=== PATIENT | female | born 1945 | race Caucasian/White ===

== ENCOUNTER → 2024-12-23 13:44 | Outpatient (REF) | payer OTHER, SELFPAY ==
--- NOTE | 2025-01-09 11:15 | OID.L.PAT ---
Pulmonary Nodule Pat Letter
- -
01/09/25
JOANNA MARTINS
[id number]
[place], [place] [address]
Tawanna MARSHALL,
A pulmonary nodule was seen on an imaging study done by [facility]. This was reviewed by the [facility] Pulmonary Nodule Advisory Board and the following recommendation was made:
Recommendation: Per Fleischner Society Guidelines for incidentally detected Pulmonary Nodules, if patient has increased risk factors for lung cancer, follow up CT Chest in one year recommended. If patient does not have increased risk factors, no
further follow up is required.
If you have any questions, please do not hesitate to contact your primary care physician. If you are in need of a Physician, you can go to [email or web address] and click on 'Find a Provider'. Type 'Family Medicine' in the search.
Oncology Nurse Navigator
[facility]
[phone]
--- NOTE | 2025-01-09 11:16 | OID.L.REC ---
Pulmonary Nodule Follow Up
- Recommendation
01/09/25
Pulmonary Nodule Review Recommendations
Your patient, JOANNA MARTINS, had a pulmonary nodule seen on an imaging study done on 12/23/24 in the [facility] Radiology Department.
This was reviewed by the [facility] Pulmonary Nodule Advisory Board and the following recommendation was made:
Recommendation: Per Fleischner Society Guidelines for incidentally detected Pulmonary Nodules, if patient has increased risk factors for lung cancer, follow up CT Chest in one year recommended. If patient does not have increased risk factors, no
further follow up is required.
If you have any questions, please do not hesitate to contact us.
Sincerely,
Oncology Nurse Navigator
[facility]
[phone]
== END ==
LOC: HWRAD 13:44
PROVIDERS: ATTENDING PHYSICIAN Student in an Organized Health Care Education/Training Program; FAMILY PHYSICIAN Internal Medicine
DX: R06.02 Shortness of breath (principal); Z13.820 Encounter for screening for osteoporosis; H93.8X3 Other specified disorders of ear, bilateral; R70.0 Elevated erythrocyte sedimentation rate; Z83.2 Family history of diseases of the blood and blood-forming organs and certain disorders involving the immune mechanism; Z85.3 Personal history of malignant neoplasm of breast; M85.88 Other specified disorders of bone density and structure, other site; Z78.0 Asymptomatic menopausal state
CPT/HCPCS: 71250; 73120; 77080

== ENCOUNTER → 2025-05-18 12:22 | Outpatient (REF) | payer OTHER, SELFPAY | LOC: RSP 12:22 | PROVIDERS: ATTENDING PHYSICIAN Student in an Organized Health Care Education/Training Program; FAMILY PHYSICIAN Internal Medicine | DX: M94.1 Relapsing polychondritis (principal); R06.02 Shortness of breath; R91.1 Solitary pulmonary nodule | CPT/HCPCS: 88738; 94060; 94727; 94729 ==